=== PATIENT | female | born 1980 | race Caucasian/White ===

== ENCOUNTER 2017-09-02 06:48 | Day surgery (SDC) | payer MEDICAID, OTHER ==
[~2017-09-02 06:48] MED LIST: Lactated Ringers 1,000 ML IV SCH
[2017-09-02] MEDS ORDERED: Propofol 200 MG/20 ML SDV IV ONE (08:00)
[2017-09-02] MEDS ORDERED: Midazolam 1 MG/ML 2 ML SDV IV ONE (08:00)
[2017-09-02] MEDS ORDERED: Lidocaine 2% 100 MG/5 ML Syringe IVPUSH ONE (08:00)
--- NOTE | 2017-09-02 08:15 | PCM.HP ---
H&P History of Present Illness - General Date of Service: 09/02/17 Admit Problem/Dx: Admission Diagnosis/Problem Admission Diagnosis/Problem Esophagogastroduodenoscopy Source of Information: Patient History Limitations: Reports: No Limitations - History of Present Illness Initial Comments - Free Text/Narative: Several week history od postprandial abdominal pain and weight loss - Related Data Allergies/Adverse Reactions: Allergies Allergy/AdvReac Type Severity Reaction Status Date / Time benzoin Allergy Blisters Verified 08/30/17 13:52 suvorexant [From Belsomra] Allergy Cannot Verified 08/30/17 13:52 Remember Home Medications: Home Meds Calcium Carb & Citrate/Vit D3 [Citracal + D ER] 1 ea PO BIDMEALS 08/30/17 [ History] Cholecalciferol (Vitamin D3) [Vitamin D3] 5,000 units PO DAILY 08/30/17 [History ] Cyanocobalamin (Vitamin B-12) [B-12] 50 mcg PO DAILY 08/30/17 [History] Escitalopram [Lexapro] 10 mg PO DAILY 08/30/17 [History] Ferrous Sulfate 325 mg PO DAILY 08/30/17 [History] Magnesium Oxide 40 mg PO DAILY 08/30/17 [History] Multivitamin with Minerals [Multiple Vitamin] 1 ea PO BID 08/30/17 [History] buPROPion HCl [Wellbutrin Xl] 300 mg PO DAILY 08/30/17 [History] Past Medical History HEENT History: Reports: Impaired Vision Cardiovascular History: Reports: None Respiratory History: Reports: None Gastrointestinal History: Reports: GERD, Other (See Below) Other Gastrointestinal History: NON FUNCTIONION GALL BLADDER, LEFT ABDOMINAL HERNIA Genitourinary History: Reports: None 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: Dysfunctional Uterine Bleeding, Other OB/BYN History: II PARAK II Musculoskeletal History: Reports: Other (See Below) Other Musculoskeletal History: CHRONIC FATIGUE Neurological History: Reports: None Psychiatric History: Reports: Anxiety, Depression Other Psychiatric History: INSOMNIA Endocrine/Metabolic History: Reports: Obesity/BMI 30+ Other Endocrine/Metabolic History: CHRONIC FATIGUE Immunologic History: Reports: None Oncologic (Cancer) History: Reports: None Dermatologic History: Reports: None - Infectious Disease History Infectious Disease History: Reports: Chicken Pox - Past Surgical History GI Surgical History: Reports: Appendectomy, Cholecystectomy, EGD, Other (See Below) Other GI Surgeries/Procedures: GASTRIC BANDING Female Surgical History: Reports: Section, Hysterectomy Other Female Surgeries/Procedures: 2004,2005. ABDOMINAL HYST. OVARIES INTACT. Social & Family History - Family History Family Medical History: Noncontributory - Tobacco Use Smoking Status *Q: Never Smoker - Caffeine Use Caffeine Use: Reports: Coffee - Recreational Drug Use Recreational Drug Use: No H&P Review of Systems - Review of Systems: Review Of Systems: See Below Pulmonary: Reports: No Symptoms Cardiovascular: Reports: No Symptoms Gastrointestinal: Reports: Abdominal Pain. Denies: Nausea, Vomiting Genitourinary: Reports: No Symptoms Exam - Exam Exam: See Below - Vital Signs Vital Signs: Last Vital Signs Temp 98.6 F 09/02/17 07:06 Pulse 55 L 09/02/17 07:06 Resp 18 09/02/17 07:06 BP 110/72 09/02/17 07:06 Pulse Ox 99 09/02/17 07:06 Weight: 74.843 kg - Exam General: Alert, Oriented Lungs: Clear to Auscultation, Normal Respiratory Effort Cardiovascular: Regular Rate, Regular Rhythm GI/Abdominal Exam: Soft, Non-Tender, No Distention Problem List Initiated/Reviewed/Updated: Yes Orders Last 24hrs: Active Orders 24 hr Category Date Time Status Patient Status [ADT] Routine ADT 09/02/17 06:45 Ordered Patient to Empty Bladder [RC] ASDIRECTED Care 09/02/17 06:45 Active Verify Patient Consent Obtain [RC] ASDIRECTED Care 09/02/17 06:45 Active Nothing Per Oral Diet [DIET] Diet 09/02/17 Breakfast Ordered Lactated Ringers [Ringers, Lactated] 1,000 ml Med 09/02/17 06:45 Active IV ASDIRECTED Peripheral IV Insertion Adult [OM.PC] Routine Oth 09/02/17 06:45 Ordered Medication Orders Lactated Ringer's (Ringers, Lactated) 1,000 mls @ 125 mls/hr IV ASDIRECTED [facility] Last Admin: 09/02/17 07:42 Dose: 125 mls/hr Assessment/Plan Comment:: A) Abd Pain and weight loss P) Proceed with EGD; risks and complications reviewed, consent obtained
--- NOTE | 2017-09-02 08:29 | PCM.OPNOTE ---
- General Post-Op/Procedure Note Date of Surgery/Procedure: 09/02/17 Operative Procedure(s): EGJ Findings: Normal Pre Op Diagnosis: Abd Pain and weight loss Post-Op Diagnosis: Same Anesthesia Technique: MAC Primary Surgeon: Brayden Stephens Anesthesia Provider: Maegan Sauceda Complications: None Condition: Good
--- NOTE | 2017-09-02 11:25 | OR ---
DATE OF OPERATION: 09/02/2017 SURGEON: Brayden Stephens MD PREOPERATIVE DIAGNOSIS: Abdominal pain and weight loss. POSTOPERATIVE DIAGNOSIS: Abdominal pain and weight loss. PROCEDURE: Esophagogastro-jejunoscopy. ANESTHESIA: IV sedation. DESCRIPTION OF PROCEDURE: The patient was brought to the procedure room, where she was placed on her left side and IV sedation administered. Oral bite block was placed, and the upper endoscope advanced into the esophagus under direct vision without difficulty. Vocal cords were viewed and were normal. The scope was advanced through the esophagus and into the gastric pouch. The distal esophagus appeared normal. The gastric pouch appeared normal. Retroflexion was normal. The gastrojejunostomy appeared normal, and the jejunal limb was intubated for approximately 20 cm and appeared normal. No source of pain was identified. There was no inflammation or ulceration or strictures or other mucosal abnormalities. Photographs were taken. Air was removed, and the scope withdrawn. The patient tolerated the procedure well and returned to Recovery in a stable condition. /[id number] TOSHIA/NATHANAEL
== END 2017-09-02 09:38 | disposition home or self-care (01) ==
LOC: FB.SDS 06:48
PROVIDERS: ATTEND Surgery
DX: R10.9 Unspecified abdominal pain (principal); R63.4 Abnormal weight loss; K21.9 Gastro-esophageal reflux disease without esophagitis; F41.9 Anxiety disorder, unspecified; F32.9 Major depressive disorder, single episode, unspecified; E66.9 Obesity, unspecified; Z88.8 Allergy status to other drugs, medicaments and biological substances; Z79.899 Other long term (current) drug therapy; Z68.30 Body mass index [BMI] 30.0-30.9, adult; Z90.49 Acquired absence of other specified parts of digestive tract; Z98.84 Bariatric surgery status
CPT/HCPCS: 44360; J7120; J2250; J2704